=== PATIENT | female | born 1965 | race Caucasian/White ===

== ENCOUNTER 2025-05-26 13:55 | Observation (INO) | payer BC ==
[2025-05-26 16:51] LABS: ABSOLUTE IMMATURE GRANULOCYTES 0.01 x10^3/uL (0.0-0.031); BASOPHILS # 0.05 x10^3/uL (0.01-0.08); EOSINOPHIL % 3.0 % (0.7-5.8); EOSINOPHILS # 0.33 x10^3/uL (0.04-0.36); MCHC 33.3 g/dl (32.2-35.5); MEAN CELL VOLUME 82.9 fl (79.4-94.8); MEAN PLT VOLUME 9.9 fl (9.4-12.3); MONOCYTE # 0.74 x10^3/uL (0.24-0.86); MONOCYTE % 6.7 % (4.7-12.5); RDW 12.5 % (12.3-16.6)
[2025-05-26 16:59] LABS: INR 0.94 (0.83-1.09); PROTHROMBIN TIME (PATIENT) 10.4 SEC (9.7-13.0)
[2025-05-26 17:01] LABS: ACTIVATED PTT 34.5 SECONDS (25.2-36.5)
[2025-05-26 17:10] LABS: ALK PHOS 56.0 U/L (45-117); CO2 27.0 mmol/L (21-32); CREATININE 0.7 mg/dl (0.6-1.3); GLUCOSE,RANDOM 108.0 mg/dl (74-106); SGOT/AST 16.0 U/L (15-37); SGPT/ALT 20.0 U/L (7-52); TOT PROT 8.0 g/dl (6.4-8.2)
[2025-05-26] MEDS ORDERED: ONDANSETRON 4 MG/2 ML VIAL IVPUSH PRN (18:02)
[2025-05-26] MEDS ORDERED: ACETAMINOPHEN WITH CODEINE 300MG/30MG TABLET PO PRN (18:06)
[2025-05-26] MEDS ORDERED: ONDANSETRON 4 MG/2 ML VIAL ONE (18:35)
[2025-05-26] MEDS ORDERED: GLYCOPYRROLATE 0.2 MG/1 ML VIAL ONE (18:35)
[2025-05-26] MEDS ORDERED: DEXAMETHASONE SOD PHOSPHATE 4 MG/1 ML VIAL ONE (18:35)
[2025-05-26] MEDS ORDERED: MIDAZOLAM HCL 2 MG/2 ML SINGLE DOSE VIAL ONE (18:35)
[2025-05-26] MEDS ORDERED: PROPOFOL 20 ML ONE (18:35)
[2025-05-26] MEDS ORDERED: LACTATED RINGERS SOLUTION 1,000 ML IV SCH (20:15)
[2025-05-26] MEDS: SODIUM CHLORIDE 1,000 ML IV SCH (20:17)
[2025-05-26 20:26] VITALS: RESP 18; BMI 25.9
[2025-05-26] MEDS: KETOROLAC TROMETHAMINE 15 MG/ML VIAL IVPUSH PRN (20:39)
[2025-05-27] MEDS: INSULIN ASPART SLIDING SCALE (NOVOLOG) 1 VIAL SQ SCH (06:08)
[2025-05-27 07:19] VITALS: BP 114/72; PULSE 87; TEMP 98.2
[2025-05-27] MEDS ORDERED: ENOXAPARIN NA (PORCINE) 40 MG/0.4 ML DISP.SYRIN SQ SCH (10:00)
== END 2025-05-27 09:09 | disposition home or self-care (01) ==
LOC: FER 13:55 → J7W 18:02 → INTOOBSV 19:47 → UNDOADMOB 19:47 → J7W 19:47 → J2C 19:49 → J7W 19:49 → J2C 19:52 → J7W 20:40 → J2C 20:40
PROVIDERS: ADMIT Internal Medicine
PROC: 3E0333Z Introduction of Anti-inflammatory into Peripheral Vein, Percutaneous Approach (ICD-10-PCS; 2025-05-26)
PROC: 3E0337Z Introduction of Electrolytic and Water Balance Substance into Peripheral Vein, Percutaneous Approach (ICD-10-PCS; 2025-05-26)
PROC: 0DC68ZZ Extirpation of Matter from Stomach, Via Natural or Artificial Opening Endoscopic (ICD-10-PCS; 2025-05-26)
PROC: 3E013VG Introduction of Insulin into Subcutaneous Tissue, Percutaneous Approach (ICD-10-PCS; principal; 2025-05-26 18:46)
DX: T17.298A Other foreign object in pharynx causing other injury, initial encounter (principal); X58.XXXA Exposure to other specified factors, initial encounter; Y99.8 Other external cause status; E83.52 Hypercalcemia; E11.9 Type 2 diabetes mellitus without complications; G89.29 Other chronic pain; E66.9 Obesity, unspecified; M54.30 Sciatica, unspecified side; Z88.8 Allergy status to other drugs, medicaments and biological substances; Z88.2 Allergy status to sulfonamides
CPT/HCPCS: 36415; 70360-TC-FY; 70490-TC; 71046-TC-FY; 71250-TC; 74150-TC; 80053; 82150; 82962; 83735; 85025; 85610; 85730; 86850; 86900; 86901; 88300-TC; 93005; 94760; 99291; G0378